=== PATIENT | female | born 2000 | race African-American/Black ===

== ENCOUNTER 2020-03-10 01:08 | Emergency (ER) | payer BC, SELFPAY ==
[2020-03-10 01:21] VITALS: BP 115/79; PULSE 82; RESP 20; TEMP 36.7; O2SAT 98
[2020-03-10 02:08] LABS: Basophils Percent Auto 0.6 % (0.2-1.2); Eosinophils Percent Auto 0.4 % (0-4.4); Hematocrit 40.1 % (37.0-47.0); Hemoglobin 13.1 g/dL (12.0-15.0); Immature Granulocyte Absolute 0.02 K/mm3 (0.00-0.031); Immature Granulocyte Percent A 0.3 % (0-0.5); Lymphocytes Absolute Auto 2.58 K/mm3 (0.9-3.2); Lymphocytes Percent Auto 36.5 % (18.3-44.2); Mean Corpuscular HGB Conc 32.7 g/dl (32-36); Mean Corpuscular Hemoglobin 27.2 pg (26-34); Mean Corpuscular Volume 83.2 fl (80-100); Mean Platelet Volume 9.5 fl (7.4-10.4); Monocytes Absolute Auto 0.5 K/mm3 (0.1-0.6); Monocytes Percent Auto 7.2 % (2.6-8.5); Neutrophils Absolute Auto 3.9 K/mm3 (1.3-6.7); Platelet Count Result 352 k/mm3 (150-375); Red Blood Count 4.82 M/mm3 (4.2-5.4); Red Cell Distribution Width 14.3 % (11.5-14.5); White Blood Count 7.1 K/mm3 (4.5-10.0)
[2020-03-10 02:22] LABS: Alanine Aminotransferase 19 U/L (4-35); Albumin Level 4.5 g/dL (3.5-5.1); Alkaline Phosphatase 77 U/L (38-126); Anion Gap 16 mmol/L (8-16); Aspartate Amino Transferase 23 U/L (14-36); Bilirubin,Total 0.1 mg/dL (0.2-1.3); Blood Urea Nitrogen 9 mg/dL (7-17); Calcium 8.9 mg/dL (8.4-10.2); Carbon Dioxide 21 mmol/L (22-30); Chloride 105 mmol/L (98-107); Estimated CRCL calculation 117 ml/min; Estimated Glomerular Filt Rate > 60; Glucose 108 mg/dL (65-105); Potassium 3.5 mmol/L (3.4-5.0); Sodium 142 mmol/L (137-145)
[2020-03-10 02:26] LABS: Ethanol 109 mg/dL (<10)
[2020-03-10 02:33] LABS: Add Urine Microscopic? YES; Appearance Urine Clear (Clear); Bilirubin Urine Negative (Negative); Blood Urine 1+ (Negative); Color Urine Straw (Yellow); Glucose Urine UA Negative (Negative); Ketones Urine Negative (Negative); Leukocyte Esterase Ur Negative LEU/UL (Negative); Mucus Urine Rare /lpf; Nitrate Urine Negative (Negative); Protein Urine Negative (Negative); RBC Urine 0-2 /hpf (0-2); Specific Grav Ur 1.011 (1.001-1.035); Squamous Epithelial Cell Urine Rare /hpf (Few); Urobilinogen Urine Negative mg/dL (<2.0); WBC Urine 0-3 /hpf
[2020-03-10 02:41] LABS: Amphetamine Screen Urine Negative (Negative); Barbiturate Screen Urine Negative (Negative); Benzodiazepines Screen Urine Negative (Negative); Cannabinoid Screen Urine Negative (Negative); Cocaine Screen Urine Negative (Negative); Methadone Screen Urine Negative (Negative); Opiate Screen Urine Negative (Negative); Phencyclidine Screen Urine Negative (Negative)
--- NOTE | 2020-03-10 03:58 | PC.NURSE ---
geotechnical department manager and this RN attempted to redraw patient's lab. Unsuccessful times 2. patient clerical assistant notified.
[2020-03-10 05:01] LABS: Ethanol 41 mg/dL (<10)
--- NOTE | 2020-03-10 05:07 | ED.PSYCH ---
HPI - Psych General Chief Complaint: Psychiatric Symptoms Stated Complaint: si-no plan Time Seen by Provider: 03/10/20 01:09 History of Present Illness HPI Narrative: Patient is a 20-year-old female who presents ER with depression and thoughts of self-harm. Reports that she went out this evening to celebrate her boyfriend's birthday. She felt like he was on appreciative of the efforts she had put in including bring him a cake. She has history of depression and meets with her counselor every Thursday. Reports several years ago she was hospitalized for suicidal ideation having plan. At this time she has no plan she is just concerned her emotions will creep up and make things worse. She has been drinking alcohol tonight. Related Data Allergies Allergy/AdvReac Type Severity Reaction Status Date / Time metronidazole [From Flagyl] Allergy Unknown Verified 03/10/20 01:25 Review of Systems Review of Systems: All systems reviewed & are unremarkable except as noted in HPI and below Constitutional: Constitutional: Denies chills, Denies fever(s) and Denies weakness ENT: Denies nasal congestion and Denies sore throat Gastrointestinal: Gastrointestinal: Denies abdominal pain, Denies nausea and Denies vomiting Psychiatric: Psychiatric: Denies anxiety, Reports depression, Denies homicidal ideation and Reports suicidal ideation PMFSH Past Medical History Medical History (Updated 03/10/20 @ 06:39 by Adam Figueroa MD) Depression Surgical History Surgical History (Updated 03/10/20 @ 05:11 by Adam Figueroa MD) No history of previous surgery Social History Social History (Updated 03/10/20 @ 05:11 by Adam Figueroa MD) Alcohol intake: current Exam Narrative: Exam Narrative: GENERAL: Well-appearing, well-nourished, and in no acute distress. HEAD: Normocephalic, atraumatic. CHEST: Clear to auscultation. No respiratory distress. HEART: Regular rate and rhythm. Normal peripheral pulses. EXTREMITIES: Normal range of motion. No edema. SKIN: Warm, dry, no rash. NEURO: No focal deficits. Alert and oriented x3. PSYCH: Normal mood and affect. Course Course Emergency Course: Clinically sober. Will have crisis come evaluate the patient. Reevaluation(s) Reevaluation #1: Patient cleared to go home by crisis. Contracted for safety. Date: 03/10/20 Time: 06:38 Vital Signs Vital signs: Vital Signs Temperature 98.1 F 03/10/20 01:21 Pulse Rate 82 03/10/20 01:21 Respiratory Rate 20 03/10/20 01:21 Blood Pressure 115/79 03/10/20 01:21 Pulse Oximetry 98 03/10/20 01:21 Temperature 98.1 F 03/10/20 01:21 Pulse Rate 82 03/10/20 01:21 Respiratory Rate 20 03/10/20 01:21 Blood Pressure 115/79 03/10/20 01:21 Pulse Oximetry 98 03/10/20 01:21 MDM - Psych Lab Data Result diagrams: 03/10/20 02:00 03/10/20 01:59 Labs: Lab Results 03/10/20 03/10/20 03/10/20 Range/Units 01:59 01:59 02:00 WBC 7.1 (4.5-10.0) K/mm3 RBC 4.82 (4.2-5.4) M/mm3 Hgb 13.1 (12.0-15.0) g/dL Hct 40.1 (37.0-47.0) % MCV 83.2 (80-100) fl MCH 27.2 (26-34) pg MCHC 32.7 (32-36) g/dl RDW 14.3 (11.5-14.5) % Plt Count 352 (150-375) k/mm3 MPV 9.5 (7.4-10.4) fl Immature Gran % (Auto) 0.3 (0-0.5) % Neut % (Auto) 55.0 (45.5-73.1) % Lymph % (Auto) 36.5 (18.3-44.2) % [place] % (Auto) 7.2 (2.6-8.5) % Eos % (Auto) 0.4 (0-4.4) % Baso % (Auto) 0.6 (0.2-1.2) % Lymph # (Auto) 2.58 (0.9-3.2) K/mm3 [place] # (Auto) 0.5 (0.1-0.6) K/mm3 Eos # (Auto) 0.0 (0-0.3) K/mm3 Baso # (Auto) 0.0 (0.0-0.1) K/mm3 Abs Immat Gran (auto) 0.02 (0.00-0.031) K/mm3 Absolute Neuts (auto) 3.9 (1.3-6.7) K/mm3 Absolute Nucleated RBC 0.0 (0.0-0.012) K/mm3 Nucleated RBC % 0.0 (0.0-0.2) % Sodium 142 (137-145) mmol/L Potassium 3.5 (3.4-5.0) mmol/L Chloride 105 (98-107) mmol/L Carbon Dioxide 21 L (2
== END 2020-03-10 06:50 | disposition home or self-care (01) ==
PROVIDERS: Emergency Provider Emergency Medicine
DX: F32.9 Major depressive disorder, single episode, unspecified (principal); F10.129 Alcohol abuse with intoxication, unspecified; Y90.5 Blood alcohol level of 100-119 mg/100 ml
CPT/HCPCS: 36415; 80053; 80307; 81001; 81025; 84443; 85025; 99284